=== PATIENT | male | born 1985 | race Two or more races ===

== ENCOUNTER 2024-05-12 21:33 | Emergency (ER) | payer BC ==
[~2024-05-12] VITALS: Ht 170.2 cm; Wt 76.2 kg
[2024-05-13] MEDS ORDERED: KETOROLAC TROMETHAMINE INJ 30 MG/ML VIAL ONE (00:20)
[2024-05-13] MEDS: KETOROLAC TROMETHAMINE INJ 30 MG/ML VIAL IM ONE (00:25)
[2024-05-13 02:59] LABS: AMPHETAMINE, URINE NEGATIVE (NEGATIVE); BARBITURATE, URINE NEGATIVE (NEGATIVE); BENZODIAZEPINE, URINE NEGATIVE (NEGATIVE); CANNABINOID, URINE NEGATIVE (NEGATIVE); COCCAINE, URINE NEGATIVE (NEGATIVE); OPIATE, URINE NEGATIVE (NEGATIVE); PHENCYCLIDINE SCREEN,URINE NEGATIVE (NEGATIVE)
[2024-05-13 03:07] LABS: APPEARANCE,URINE CLEAR (CLEAR); BILIRUBIN,URINE NEGATIVE (NEGATIVE); BLOOD, URINE NEGATIVE Ery/uL (NEGATIVE); COLOR,URINE YELLOW (YELLOW); KETONES,URINE NEGATIVE (NEGATIVE); LEUKOCYTE ESTERASE ,URINE NEGATIVE (NEGATIVE); NITRITE, URINE NEGATIVE (NEGATIVE); PROTEIN,URINE NEGATIVE (NEGATIVE); UGLUCOSE NEGATIVE (NEGATIVE); UROBILINOGEN,URINE 0.2 EU/dL (0.2)
[2024-05-13] MEDS ORDERED: HYDROMORPHONE 1 MG/1 ML DISP.SYRIN ONE (04:29)
[2024-05-13] MEDS ORDERED: ONDANSETRON 4 MG TAB.RAPDIS ONE (04:29)
[2024-05-13] MEDS: HYDROMORPHONE 1 MG/1 ML DISP.SYRIN IM ONE (04:30)
[2024-05-13] MEDS: ONDANSETRON 4 MG TAB.RAPDIS PO ONE (04:30)
[2024-05-13] MEDS ORDERED: GABA-532 PO (05:31)
[2024-05-13 05:47] VITALS: BP 124/78; TEMP 98; O2SAT 98
== END 2024-05-13 05:48 | disposition home or self-care (01) ==
LOC: ER 23:14
DX: M54.12 Radiculopathy, cervical region (principal)
CPT/HCPCS: 99285; 72125; 96372 ×2; 73030; 80307; 81003; J1885; Q0162; J1171